=== PATIENT | female | born 1960 | race Caucasian/White ===

== ENCOUNTER 2019-11-30 01:51 | Outpatient (CLI) | payer OTHER, SELFPAY ==
--- NOTE | 2019-11-30 10:00 | DI.CT_ITS ---
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 TECHNIQUE: Imaging protocol: Axial computed tomography images were obtained and coronal and sagittal reformatted images were created and reviewed. COMPARISON: No exams were available for comparison FINDINGS: Tracheobronchial tree: Patent where visualized. Mediastinum and Mariely: No dominant adenopathy or fluid collection. Pulmonary parenchyma: There are multiple noncalcified pulmonary nodules scattered throughout the lung s. The largest nodule is in the left lower lobe laterally and measures 0.5 cm. No architectural dis tortion. No focal consolidating infiltrates. Pleura: No effusion or pneumothorax. Heart: The heart is not dilated. Moderate coronary artery calcification. No significant pericardial effusion. Aorta: Thoracic aorta non-dilated. Atherosclerosis. Upper abdomen: Status post cholecystectomy. Lymph nodes: Within normal limits. Bones:Degenerative changes are present. No aggressive osseous lesions are identified. Soft tissues: Apparent postsurgical changes are seen in the upper outer quadrant of the right breast. There is skin thickening seen of the right breast. This may reflect post radiation therapy treatme nt. Please correlate with the patient's past therapeutic history. IMPRESSION: 1. Multiple noncalcified pulmonary nodules. Differential considerations include prior infectious pro cess, inflammatory process, or metastatic disease 2. Skin thickening and post surgical changes in the right breast. Please correlate clinically. DATA REPOSITORY: All CT scans at this facility are submitted to the National Radiology Data Registry (NRDR) Dose Index Registry (DIR) with the [employer] ([employer]). RADIATION OPTIMIZATION: All CT scans at this facility use at least one of these dose optimization te chniques: automated exposure control; mA and/or kV adjustment per patient size (includes targeted exa ms where dose is matched to clinical indication); or iterative reconstruction.
== END 2019-11-30 02:11 ==
PROVIDERS: PCP Physician Assistant; Visit Provider Radiology Radiation Oncology
DX: C50.411 Malignant neoplasm of upper-outer quadrant of right female breast (principal); R91.8 Other nonspecific abnormal finding of lung field; N64.59 Other signs and symptoms in breast
CPT/HCPCS: 71250

== ENCOUNTER 2020-04-03 01:43 | Outpatient (CLI) | payer OTHER, SELFPAY ==
--- NOTE | 2020-04-03 | DI.CT_ITS ---
EXAM: CT CHEST WO CLINICAL HISTORY: RT BREAST CA,C50.911,F/U MULT LUNG NODULES,R91.8. TECHNIQUE: Imaging protocol: Axial computed tomography images were obtained and coronal and sagittal reformatted images were created and reviewed. COMPARISON: CT CT CHEST WO from 11/30/2019 FINDINGS: Tracheobronchial tree: Patent where visualized. Mediastinum and Mariely: No dominant adenopathy or fluid collection. Pulmonary parenchyma: No focal consolidation is present. There has been no significant change in num sierra or size of the pulmonary nodules. No architectural distortion. Pleura: No effusion or pneumothorax. Heart: The heart is not dilated. Moderately severe coronary artery calcification is present. No yon cardial effusion. Aorta: Thoracic aorta non-dilated. Atherosclerosis. Upper abdomen: Status post cholecystectomy. Pancreatic calcifications are present. This can be see n with chronic pancreatitis. Splenic granuloma are seen. Lymph nodes: Within normal limits. Bones:Degenerative changes. Soft tissues: There is again seen skin thickening of the right breast which may reflect post therapeu tic changes. IMPRESSION: Stable pulmonary nodules. RADIATION DOSE DELIVERED: Total DLP Total DLP DATA REPOSITORY: All CT scans at this facility are submitted to the National Radiology Data Registry (NRDR) Dose Index Registry (DIR) with the [employer] ([employer]). RADIATION OPTIMIZATION: All CT scans at this facility use at least one of these dose optimization te chniques: automated exposure control; mA and/or kV adjustment per patient size (includes targeted exa ms where dose is matched to clinical indication); or iterative reconstruction.
== END 2020-04-03 02:03 ==
PROVIDERS: PCP Physician Assistant; Visit Provider Radiology Radiation Oncology
DX: C50.911 Malignant neoplasm of unspecified site of right female breast (principal); R91.8 Other nonspecific abnormal finding of lung field
CPT/HCPCS: 71250